=== PATIENT | female | born 1950 | race Caucasian/White ===

== ENCOUNTER 2019-11-10 11:05 | Outpatient (CLI) | payer MEDICARE, SELFPAY ==
--- NOTE | 2019-11-10 11:10 | MM_ITS ---
WS: [id number] SCREENING DIGITAL MAMMOGRAM WITH CAD HISTORY: SCREENING COMPARISON: 08/22/2018 and 08/16/2017 Bilateral CC and MLO views submitted. Computer aided detection analyzed. Breast composition: There are scattered areas of fibroglandular density. No suspicious mass or calcif ications. MM/[id number] IMPRESSION: BI-RADS: 1-Negative FOLLOW UP: 1 Year Follow-up
== END 2019-11-10 11:06 | disposition home or self-care (01) ==
LOC: RADSHAW 11:08
PROVIDERS: Family Provider Registered Nurse; PCP Registered Nurse; Visit Provider Registered Nurse
DX: Z12.31 Encounter for screening mammogram for malignant neoplasm of breast (principal)
CPT/HCPCS: 77067

== ENCOUNTER 2020-03-01 05:51 | Day surgery (SDC) | payer MEDICARE, SELFPAY ==
[2020-02-29 15:10] VITALS: BMI 27.2
[2020-03-01 06:01] VITALS: BP 145/74; PULSE 73; RESP 18; TEMP 36.6; O2SAT 97
[2020-03-01] MEDS: CELEcoxib 200 mg Capsule 400 MG PO (06:22)
[2020-03-01] MEDS: sodium chloride 0.9% 1,000 ML 30 ML IV (06:22)
[2020-03-01 06:31] LABS: Basophils # 0.1 10^3/uL (0.0-0.1); Basophils % 0.8 %; Eosinophils # 0.3 10^3/uL (0.0-0.8); Eosinophils % 4.7 %; Hematocrit 37.5 % (37.0-47.0); Hemoglobin 11.9 g/dL (11.5-15.3); Lymphocytes # 1.7 10^3/uL (0.8-4.8); Lymphocytes % 26.1 %; Mean Corpuscular HGB Conc 31.7 g/dL (30.0-36.0); Mean Corpuscular Hemoglobin 29.7 pg (28.0-34.0); Mean Corpuscular Volume 93.5 fL (81-99); Mean Platelet Volume 9.9 fL (7.4-10.4); Monocytes # 0.6 10^3/uL (0.2-0.9); Monocytes % 9.5 %; Neutrophils # 3.8 10^3/uL (1.8-7.7); Neutrophils % 58.7 %; Nucleated Red Blood Cells % 0 %; Platelet Count 256 10^3/cmm (130-400); Red Blood Count 4.01 10^6/uL (4.1-5.3); Red Cell Distribution Width 12.2 % (12.1-15.1); White Blood Count 6.4 10^3/uL (4.0-10.0)
--- NOTE | 2020-03-01 06:33 | P.ANESASSM_ITS ---
Pre-Anesthetic Assessment Pre-Anesthetic Assessment: Height/Weight: Height 1.7 m Weight 78.925 kg Temp Pulse Resp BP Pulse Ox 97.9 F 73 18 145/74 97 03/01/20 06:01 03/01/20 06:01 03/01/20 06:01 03/01/20 06:01 03/01/20 06:01 Preop Diagnosis: Right long finger triggering Proposed Procedure: Operation Date: 03/01/20 07:10 Proposed Procedures p Trigger Finger Release/Right Middle Finger 31924 M65.30(Right) - Bessie Hurtado MD Familial anesthetic complications: None Was Beta Linh taken within 24 hours: N/A Last intake: Intake Last Liquid Date 02/29/20 Last Liquid Time 21:00 Last Solid Date 02/29/20 Last Solid Time 19:00 Social: Social History: No alcohol and No tobacco Exam: Pre-Anes Outpt Exam: alert, oriented x 3, clear to auscultation bilaterally and regular rate & rhythm Airway: Cervical ROM: WNL MP: 2 Dentition: Full Pulmonary: Pulmonary: None reported CV/HEM: CV/HEM: HTN : : None reported Hepatic: Hepatic: None reported GI: GI: None reported Metabolic: Metabolic: Hyperlipidemia and Thyroid Musc/skel: Musc/skel: OA/DJD Neuropsych: Neuropsych: None reported Anesthetic Plan: ASA status: 2 Anesthesia: MAC and Regional (specify below) (selma block) Risk of > 500 ml blood loss (7ml/kg in children): No Meds/Allergies Current Medications: Current Medications Generic Name Dose Route Start Last Admin Trade Name Freq PRN Reason Stop Dose Admin Sodium Chloride 1,000 mls @ 30 ml s/hr 03/01/20 06:00 03/01/20 06:22 Sodium Chloride 0.9% IV 03/02/20 05:59 30 mls/hr .Q24H MAXIMINO Administration PFSH Anesthesia PFSH: Medical History (Updated 02/25/20 @ 15:38 by Bessie Hurtado MD) Accelerated essential hypertension Hypercholesteremia Hypothyroidism Trigger finger of right hand Surgical History (Updated 02/25/20 @ 15:37 by Bessie Hurtado MD) H/O thyroidectomy Hx of hysterectomy Hx of tubal ligation Family History Father Hypertension Hypercholesterolemia Mother Heart disease Hypercholesterolemia Social History Smoking and tobacco status: never smoked Alcohol intake: current Alcohol intake frequency: holidays/special occasions only Data Anesthesia CBC & Chem 7: 03/01/20 06:17 Other Labs: Laboratory Results - last 48 hr 03/01/20 06:17 WBC 6.4 RBC 4.01 L Hgb 11.9 Hct 37.5 MCV 93.5 MCH 29.7 MCHC 31.7 RDW 12.2 Plt Count 256 MPV 9.9 Neut % (Auto) 58.7 Lymph % (Auto) 26.1 [place] % (Auto) 9.5 Eos % (Auto) 4.7 Baso % (Auto) 0.8 Neut # (Auto) 3.8 Lymph # (Auto) 1.7 [place] # (Auto) 0.6 Eos # (Auto) 0.3 Baso # (Auto) 0.1 Nucleated RBC % (auto) 0 Nucleated RBCs # 0.0 Cardiac Studies: No Data to Display
[2020-03-01 06:40] LABS: Alanine Aminotransferase 11 U/L (0-33); Albumin Level 4.4 g/dL (3.5-5.2); Alkaline Phosphatase 76 IU/L (35-105); Anion Gap 16.2 (5-19); Aspartate Amino Transferase 19 U/L (0-32); Blood Urea Nitrogen 8 mg/dL (8-23); Calcium 9.7 mg/dL (8.5-10.5); Carbon Dioxide 28 mmol/L (22-29); Chloride 100 mmol/L (98-107); Globulin 3.5 g/dL (1.3-4.6); Glomerular Filtration Rate 54.8 mL/min (90-130); Glucose 92 mg/dL (65-115); Osmolality Calculated 286 mOsm/kg (285-295); Potassium 4.2 mmol/L (3.5-5.1); Sodium 140 mmol/L (136-145); Total Bilirubin 0.3 mg/dL (0.15-1.2); Total Protein 7.9 g/dL (6.6-8.7)
--- NOTE | 2020-03-01 06:50 | W.PM.OPSUD ---
Surgery/Procedure H&P Update DATE OF PROCEDURE: March 01, 2020 DATE H&P PERFORMED: 02/25/20 H&P UPDATE INFORMATION: I have reviewed H&P completed within last 30 days, I have examined patient prior to procedure and No changes to prior documentation PREOP DIAGNOSIS: Right long finger triggering PLANNED PROCEDURE: Operation Date: 03/01/20 07:10 Proposed Procedures p Trigger Finger Release/Right Middle Finger 52844 M65.30(Right) - Bessie Hurtado MD
[2020-03-01 07:43] VITALS: BP 180/93; PULSE 78; RESP 18; TEMP 36.2; O2SAT 100
--- NOTE | 2020-03-01 07:47 | PM.OP ---
Operative Report Date of procedure: March 01, 2020 Pre-op Diagnosis: Right long finger triggering Post-op diagnosis: same Post-op Findings: Relief of triggering, but maintained flexion contracture at PIP joint Procedure Done: Right long finger trigger release Specimens removed/disposition: None Pathology: none sent Surgeon: Bessie Hurtado Nurse Staff Community Health: None Anesthesia: MAC (With James block) Estimated blood loss (mL): 1 Tourniquet time (min): 28 IV fluids (mL): 400 Urine output (mL): 0 Complications: None Condition: stable Disposition: same day Brief History: This 69-year-old woman presented with complaints of triggering of the right long finger. She also had flexion particularly at the PIP joint on that finger. She was advised preoperatively that this was likely secondary to arthritis and would not improve with a trigger finger release. The patient understood and wished to proceed with release of her trigger finger. Procedure: Patient was brought to the operating theater. She was placed on the operating room table. A James block was administered without difficulty. Patient tolerated it well. A tourniquet was placed high on the arm and was elevated for the [place] block. Tourniquet time was 28 minutes. Surgical pause was performed prior to commencement of the surgical procedure. At the time of the surgical pause we identified the site and side of surgery. We also identified the patient's identity and appropriate administration of IV antibiotics. Following the surgical pause, an incision was made along the distal palmar crease beneath the long finger. Dissection continued through the skin to the subcutaneous tissues using a scalpel. Blunt dissection was then utilized to spread soft tissues and allow access to the A1 william. The A1 william was identified. It was then incised longitudinally and sharply using a knife. This was accomplished without difficulty and atraumatically. Once the A1 william was released, tendons were brought up out of the wound and evaluated. There were no gross masses on the tendons. Tendons were returned to normal position. We then irrigated the wound and subsequently closed it with 3-0 nylon with an interrupted mattress type suture. Following closure of the wound, the wound was injected with 6 mL of bupivacaine into the subcutaneous tissues as a local anesthetic. Sterile dressing was then placed consisting of Telfa, Tegaderm, fluffed fluffs, sterile soft roll, and an Renato wrap. The patient was returned to recovery in satisfactory condition. She will be discharged home to follow-up with me in the office. There were no complications and no specimens. Associated Problem List Diagnoses (1) Trigger finger of right hand: Qualifiers: Trigger finger location: middle finger Qualified Code(s): M65.331 - Trigger finger, right middle finger
[2020-03-01 08:12] VITALS: BP 177/85; PULSE 72; RESP 18; O2SAT 100
== END 2020-03-01 08:20 | disposition home or self-care (01) ==
PROVIDERS: PCP Registered Nurse; Visit Provider Specialist
PROC: (CPT 26055; principal; 2020-03-01 07:00)
DX: M65.331 Trigger finger, right middle finger (principal); E03.9 Hypothyroidism, unspecified; I10 Essential (primary) hypertension; E78.5 Hyperlipidemia, unspecified
CPT/HCPCS: 26055; 12345; 36415; 80053; 85025; J2001; J2250; J2704; J3490; J7030

== ENCOUNTER 2020-11-17 07:56 | Outpatient (CLI) | payer MEDICARE, SELFPAY ==
--- NOTE | 2020-11-17 07:59 | MM_ITS ---
WS: [id number] Bilateral screening digital mammogram, 11/17/2020 Clinical Data: SCREENING Comparison: 11/10/2019, 08/22/2018, 08/16/2017, 08/01/2016, 06/27/2015, 06/23/2014, 04/28/2013, 04/25/20, 03/01/2011, 08/17/2009, 03/25/2008, 12/25/2006. Findings: The breast parenchymal pattern shows fat replacement. No spiculated masses or clustered calcification s are seen. There are no secondary signs of carcinoma. There are lymph nodes in both axilla. MM/[place] [id number] Impression: 1. Negative bilateral mammogram unchanged. 2. Recommend annual screening mammograms. BIRADS: 1-Negative FOLLOW UP: 1 Year Follow-up The CAD cylinder checker was used.
== END 2020-11-17 07:57 | disposition home or self-care (01) ==
LOC: RADSHAW 07:58
PROVIDERS: PCP Registered Nurse; Visit Provider Registered Nurse
DX: Z12.31 Encounter for screening mammogram for malignant neoplasm of breast (principal)
CPT/HCPCS: 77067

== ENCOUNTER 2022-01-16 08:24 | Outpatient (CLI) | payer MEDICARE, SELFPAY ==
--- NOTE | 2022-01-16 08:31 | MM_ITS ---
WS: [id number] BILATERAL SCREENING DIGITAL BREAST TOMOSYNTHESIS MAMMOGRAM WITH CAD HISTORY: SCREENING COMPARISON: 11/17/2020 and 11/10/2019 Bilateral CC and MLO views with tomosynthesis and synthetic mammography submitted. Computer aided det ection analyzed. Breast composition: There are scattered areas of fibroglandular density. No suspicious masses, microc alcifications or architectural distortion. MM/[place] [id number] IMPRESSION: BI-RADS: 1-Negative FOLLOW UP: 1 Year Follow-up
== END 2022-01-16 08:25 | disposition home or self-care (01) ==
LOC: RAD 08:28
PROVIDERS: PCP Registered Nurse; Visit Provider Family Medicine
DX: Z12.31 Encounter for screening mammogram for malignant neoplasm of breast (principal)
CPT/HCPCS: 77063; 77067

== ENCOUNTER 2022-09-07 08:21 | Emergency (ER) | payer MEDICARE, SELFPAY ==
[2022-09-07] VITALS (7 sets, daily range): BP systolic 144–187; BP diastolic 78–87; PULSE 92–107; RESP 18–22; TEMP 36.8; O2SAT 91–96; BMI 29.0
--- NOTE | 2022-09-07 08:31 | XRR_ITS ---
PROCEDURE INFORMATION: Exam: XR Chest Exam date and time: 09/07/2022 9:00 AM Age: 71 years old Clinical indication: Shortness of breath; Additional info: SOB TECHNIQUE: Imaging protocol: Radiologic exam of the chest. Views: 2 views. COMPARISON: No relevant prior studies available. FINDINGS: Lungs: There is streaky airspace opacity in the retrocardiac region, projecting over the spine on the lateral view, concerning for pneumonia. Bibasilar atelectasis noted. Pleural spaces: Unremarkable. No pleural effusion. No pneumothorax. Heart/Mediastinum: Unremarkable. No cardiomegaly. Bones/joints: Unremarkable. XR/XR chest 2V* [id number] IMPRESSION: Left lower lobe pneumonia versus atelectasis. Clinical correlation is recommended.
[2022-09-07] MEDS: sodium chloride 0.9% 1,000 ML 999 ML IV (08:45)
[2022-09-07 08:46] LABS: Basophils % 0.3 %; Eosinophils # 0.1 10^3/uL (0.0-0.8); Eosinophils % 0.9 %; Hematocrit 39.7 % (37.0-47.0); Hemoglobin 13.1 g/dL (11.5-15.3); Lymphocytes # 1.5 10^3/uL (0.8-4.8); Lymphocytes % 12.1 %; Mean Corpuscular Hemoglobin 30.8 pg (28.0-34.0); Mean Corpuscular Volume 93.2 fl (81-99); Mean Platelet Volume 9.8 fL (7.4-10.4); Monocytes # 0.9 10^3/uL (0.2-0.9); Monocytes % 7.5 %; Neutrophils # 9.82 10^3/uL (1.8-7.7); Neutrophils % 78.9 %; Nucleated Red Blood Cells % 0 %; Platelet Count 268 10^3/cmm (130-400); Red Blood Count 4.26 10^6/uL (4.1-5.3); Red Cell Distribution Width 12.9 % (12.1-15.1); White Blood Count 12.5 10^3/uL (4.0-10.0)
[2022-09-07] MEDS: albuterol 2.5 mg/3 mL Neb INHALATION (09:09)
[2022-09-07 09:11] LABS: Alanine Aminotransferase 16 U/L (0-33); Albumin Level 4.5 g/dL (3.5-5.2); Alkaline Phosphatase 136 U/L (35-105); Anion Gap 16.1 (5-19); Aspartate Amino Transferase 22 U/L (0-32); Blood Urea Nitrogen 10 mg/dL (8-23); Calcium 9.6 mg/dL (8.5-10.5); Carbon Dioxide 28 mmol/L (22-29); Chloride 92 mmol/L (98-107); Globulin 4.2 g/dL (1.3-4.6); Glucose 105 mg/dL (65-115); Osmolality Calculated 273 mOsm/kg (285-295); Potassium 4.1 mmol/L (3.5-5.1); Sodium 132 mmol/L (136-145); Total Bilirubin 0.5 mg/dL (0.15-1.2); Total Protein 8.7 g/dL (6.6-8.7)
[2022-09-07 09:15] LABS: SARS Covid-2 Antigen negative (Negative)
[2022-09-07 09:16] LABS: Influenza A by IFA negative (Negative); Influenza B by IFA negative (Negative)
--- NOTE | 2022-09-07 09:37 | ECG_ITS ---
[facility] Test Date: 2022-09-07 Pat Name: Sofia Cruz Department: Room: Gender: Female [employer]: : 1950 Requested By: Mary Ann Marshall Order Number: [id number] Murguia MD: Tabitha Tubbs M.D. Measurements Intervals [place] Rate: 97 P: 56 MO: 182 QRS: 40 QRSD: 83 T: 41 QT: 362 QTc: 461 Interpretive Statements SINUS RHYTHM POSSIBLE LEFT ATRIAL ENLARGEMENT [-0.1mV P-WAVE IN V1/V2] No previous ECG available for comparison Electronically Signed On 09-07-2022 16:54:15 INVESTIGATIVE ASSISTANT by Tabitha Tubbs M.D. [id number]
--- NOTE | 2022-09-07 09:47 | W.ED.SOB ---
Documented by User: APOLINAR Almonte 09/07/22 13:27 HPI - SOB/Dyspnea General: Chief Complaint: Shortness of Breath/Dyspnea Stated Complaint: SOB Time Seen by Provider: 09/07/22 08:28 History of Present Illness: HPI Narrative: Patient is in today for shortness of breath. She reports that for a few days she has had some nasal congestion and drainage with a little bit of irritated throat. She reports that she woke up this morning and felt like her throat was very painful and she felt short of breath. She denies any fever or chills. She denies any chest pain Associated symptoms: Deny abdominal pain, chest pain, fever(s), nausea, palpitations or vomiting Review of Systems Const: Denies: fever(s), chills or body aches Eyes: Reports: eye discharge (Left eye crusting) ENMT: Reports: throat pain, nasal discharge and nasal congestion Card: Denies: chest pain, palpitations or irregular heart rhythm Resp: Reports: dyspnea and non-productive cough; Denies: productive cough or wheezing GI: Denies: abdominal pain, nausea or vomiting : Denies: flank pain, difficulty voiding or dysuria Neuro: Denies: headache(s) PFSH ED PFSH: Medical History (Updated 09/07/22 @ 10:15 by APOLINAR Almonte) Accelerated essential hypertension Hypercholesteremia Hypothyroidism Trigger finger of right hand Surgical History H/O thyroidectomy Hx of hysterectomy Hx of tubal ligation Family History Father Hypertension Hypercholesterolemia Mother Heart disease Hypercholesterolemia Social History Smoking and tobacco status: never smoked Alcohol intake: current Alcohol intake frequency: holidays/special occasions only Physical Exam Const: COMMON NORMALS: patient oriented x3 and alert OTHER: Patient is slightly tachypneic but not using accessory muscles to breathe. She is calm and resting HENMT: TYMPANIC MEMBRANE: TM normal on the right and TM abnormal TM laterality: left Details: fluid behind TM MOUTH: moist mucous membranes abnormal Details: parched THROAT: uvula midline and postnasal drainage Neck/C-Spine: COMMON NORMALS: no JVD Resp: EFFORT & INSPECTION: Yes able to speak in complete sentences, Yes symmetric chest movement, Yes tachypneic and No respiratory distress AUSCULTATION: wheezes scattered wheezes and throughout Cardio: COMMON NORMALS: no JVD, regular rhythm, S1 normal heart sound present and S2 normal heart sound present RATE: tachycardic RHYTHM: regular rhythm HEART SOUNDS: S1 normal heart sound present and S2 normal heart sound present Neuro: COMMON NORMALS: patient oriented x3, moves all extremities and no focal motor deficits SENSORIUM/ORIENTATION: Yes alert Course Vital Signs: Vital signs: Vital Signs Temperature 98.3 F 09/07/22 08:25 Pulse Rate 99 09/07/22 10:00 Respiratory Rate 21 H 09/07/22 10:00 Blood Pressure 187/87 09/07/22 10:00 Pulse Oximetry 93 09/07/22 10:00 Oxygen Delivery Me thod 09/07/22 10:00 MDM - SOB/Dyspnea Medical Decision Making Differentials include upper respiratory infection, influenza, COVID-19, pulmonary embolism, pneumonia, strep pharyngitis Influenza and COVID-19 testing negative White blood cell count elevated to 12.5 IV fluids initiated strep pharyngitis done. EKG ordered does not show any acute ST changes. Sinus rhythm with a rate of 97. Patient reports feeling somewhat improved with administration of IV fluids and albuterol nebulized treatment. X-ray chest shows left lower lobe pneumonia versus atelectasis. Treat patient for left lower lobe pneumonia with doxycycline that she is allergic to penicillin. First dose doxycycline given now. Amlodipine 2.5 mg given now as patient's blood pressures running slightly higher patient reports not having taken her morning amlodipine medication. Send patient home with doxycycline antibiotic, prednisone burst and albuterol inhaler. Encourage patient to maintain adequate hydration, cough and deep breathe, rest. Follow-up with primary care provider next week for reevaluation. Return to the ER for any new or worsening symptoms. Lab Data 09/07/22 08:40 09/07/22 08:40 Labs/Radiology: Radiology Impressions Chest X-Ray 09/07/22 08:31 IMPRESSION: Left lower lobe pneumonia versus atelectasis. Clinical correlation is recommended. Laboratory Results WBC 12.5 10^3/uL (4.0-10.0) H 09/07/22 08:40 RBC 4.26 10^6/uL (4.1-5.3) 09/07/22 08:40 Hgb 13.1 g/dL (11.5-15.3) 09/07/22 08:40 Hct 39.7 % (37.0-47.0) 09/07/22 08:40 MCV 93.2 fl (81-99) 09/07/22 08:40 MCH 30.8 pg (28.0-34.0) 09/07/22 08:40 MCHC 33.0 g/dL (30.0-36.0) 09/07/22 08:40 RDW 12.9 % (12.1-15.1) 09/07/22 08:40 Plt Count 268 10^3/cmm (130-400) 09/07/22 08:40 MPV 9.8 fL (7.4-10.4) 09/07/22 08:40 Neut % (Auto) 78.9 % 09/07/22 08:40 Lymph % (Auto) 12.1 % 09/07/22 08:40 [place] % (Auto) 7.5 % 09/07/22 08:40 Eos % (Auto) 0.9 % 09/07/22 08:40 Baso % (Auto) 0.3 % 09/07/22 08:40 Neut # (Auto) 9.82 10^3/uL (1.8-7.7) H 09/07/22 08:40 Lymph # (Auto) 1.5 10^3/uL (0.8-4.8) 09/07/22 08:40 [place] # (Auto) 0.9 10^3/uL (0.2-0.9) 09/07/22 08:40 Eos # (Auto) 0.1 10^3/uL (0.0-0.8) 09/07/22 08:40 Baso # (Auto) 0.0 10^3/uL (0.0-0.1) 09/07/22 08:40 Nucleated RBC % (auto) 0 % 09/07/22 08:40 Nucleated RBCs # 0.0 /100WBC 09/07/22 08:40 Sodium 132 mmol/L (136-145) L 09/07/22 08:40 Potassium 4.1 mmol/L (3.5-5.1) 09/07/22 08:40 Chloride 92 mmol/L (98-107) L 09/07/22 08:40 Carbon Dioxide 28 mmol/L (22-29) 09/07/22 08:40 Anion Gap 16.1 (5-19) 09/07/22 08:40 BUN 10 mg/dL (8-23) 09/07/22 08:40 Creatinine 0.9 mg/dL (0.5-0.9) 09/07/22 08:40 GFR Calculation Not Reportable 09/07/22 08:40 Glucose 105 mg/dL (65-115) 09/07/22 08:40 Calculated Osmolality 273 mOsm/kg (285-295) L 09/07/22 08:40 Calcium 9.6 mg/dL (8.5-10.5) 09/07/22 08:40 Total Bilirubin 0.5 mg/dL (0.15-1.2) 09/07/22 08:40 AST 22 U/L (0-32) 09/07/22 08:40 ALT 16 U/L (0-33) 09/07/22 08:40 Alkaline Phosphatase 136 U/L (35-105) H 09/07/22 08:40 Total Protein 8.7 g/dL (6.6-8.7) 09/07/22 08:40 Albumin 4.5 g/dL (3.5-5.2) 09/07/22 08:40 Globulin 4.2 g/dL (1.3-4.6) 09/07/22 08:40 Influenza Type A Ag negative (Negative) 09/07/22 08:48 Influenza Type B Ag negative (Negative) 09/07/22 08:48 SARS-CoV-2 Ag (Rapid) negative (Negative) 09/07/22 08:48 Group A Strep Rapid Negative (Negative) 09/07/22 10:00 Discharge Plan Discharge Patient Disposition: Home Clinical Impression: Left lower lobe pneumonia Condition: Stable Prescriptions: New doxycycline hyclate 100 mg capsule 100 mg PO BID 7 Days Qty: 14 0RF prednisone 20 mg tablet 40 mg PO DAILY 5 Days Qty: 10 0RF albuterol sulfate 90 mcg/actuation HFA aerosol inhaler 2 inh inhalation Q6H PRN (Reason: shortness of breath or wheezing) Qty: 6.7 0RF No Action bupropion HCl 150 mg Tablet Sustained-Release 12 Hr 150 mg PO BID trazodone 50 mg tablet 50 mg PO BEDTIME celecoxib 200 mg capsule 200 mg PO DAILY Qty: 30 0RF levothyroxine 137 mcg tablet 137 mcg PO QAM amlodipine-atorvastatin 2.5-10 mg tablet 1 tab PO DAILY Cymbalta 60 mg Capsule,Delayed Release(Dr/Ec) 60 mg PO DAILY Women's 50 Plus Multivitamin 400 mcg-500 mg calcium-20 mcg Tablet 1 tab PO DAILY Discharge Orders: Discharge ED (Routine); Ordered 09/07/22 Ordered By: Mary Ann Marshall Referrals: Liliana Cordero FNP [Primary Care Provider] - Discharge Diet: Usual diet Discharge Activity: Increase activity as tolerated Patient Instructions: Pneumonia (ED) Activity Restrictions/Additional Instructions: Take antibiotics as directed. Start your home antibiotic tonight as you have already had the morning dose. Start the prednisone tomorrow on 09/08/2022. Make sure that you are staying well-hydrated. Make sure that you are coughing and deep breathing. Follow-up with your primary care provider next week. Return to the ER as needed for any new or worsening symptoms. Coding Level of Care Code ED Assembler Installer General for Chg Fwd Exam Detailed Documented by User: David Gil DO 09/07/22 16:47 HPI - SOB/Dyspnea General: Chief Complaint: Shortness of Breath/Dyspnea Stated Complaint: SOB Time Seen by Provider: 09/07/22 08:28 PFS ED PFSH: Medical History (Updated 09/07/22 @ 10:15 by APOLINAR Almonte) Accelerated essential hypertension Hypercholesteremia Hypothyroidism Trigger finger of right hand Surgical History H/O thyroidectomy Hx of hysterectomy Hx of tubal ligation Family History Father Hypertension Hypercholesterolemia Mother Heart disease Hypercholesterolemia Social History Smoking and tobacco status: never smoked Alcohol intake: current Alcohol intake frequency: holidays/special occasions only Course Vital Signs: Vital signs: Vital Signs Temperature 98.3 F 09/07/22 08:25 Pulse Rate 99 09/07/22 10:00 Respiratory Rate 21 H 09/07/22 10:00 Blood Pressure 187/87 09/07/22 10:00 Pulse Oximetry 93 09/07/22 10:00 Oxygen Delivery Me thod 09/07/22 10:00 MDM - SOB/Dyspnea Medical Decision Making Differentials include upper respiratory infection, influenza, COVID-19, pulmonary embolism, pneumonia, strep pharyngitis Influenza and COVID-19 testing negative White blood cell count elevated to 12.5 IV fluids initiated strep pharyngitis done. EKG ordered does not show any acute ST changes. Sinus rhythm with a rate of 97. Patient reports feeling somewhat improved with administration of IV fluids and albuterol nebulized treatment. X-ray chest shows left lower lobe pneumonia versus atelectasis. Treat patient for left lower lobe pneumonia with doxycycline that she is allergic to penicillin. First dose doxycycline given now. Amlodipine 2.5 mg given now as patient's blood pressures running slightly higher patient reports not having taken her morning amlodipine medication. Send patient home with doxycycline antibiotic, prednisone burst and albuterol inhaler. Encourage patient to maintain adequate hydration, cough and deep breathe, rest. Follow-up with primary care provider next week for reevaluation. Return to the ER for any new or worsening symptoms. Chart reviewed and patient discussed with midlevel. Agree with assessment and plan. Lab Data 09/07/22 08:40 09/07/22 08:40 Labs/Radiology: Radiology Impressions Chest X-Ray 09/07/22 08:31 IMPRESSION: Left lower lobe pneumonia versus atelectasis. Clinical correlation is recommended. Laboratory Results WBC 12.5 10^3/uL (4.0-10.0) H 09/07/22 08:40 RBC 4.26 10^6/uL (4.1-5.3) 09/07/22 08:40 Hgb 13.1 g/dL (11.5-15.3) 09/07/22 08:40 Hct 39.7 % (37.0-47.0) 09/07/22 08:40 MCV 93.2 fl (81-99) 09/07/22 08:40 MCH 30.8 pg (28.0-34.0) 09/07/22 08:40 MCHC 33.0 g/dL (30.0-36.0) 09/07/22 08:40 RDW 12.9 % (12.1-15.1) 09/07/22 08:40 Plt Count 268 10^3/cmm (130-400) 09/07/22 08:40 MPV 9.8 fL (7.4-10.4) 09/07/22 08:40 Neut % (Auto) 78.9 % 09/07/22 08:40 Lymph % (Auto) 12.1 % 09/07/22 08:40 [place] % (Auto) 7.5 % 09/07/22 08:40 Eos % (Auto) 0.9 % 09/07/22 08:40 Baso % (Auto) 0.3 % 09/07/22 08:40 Neut # (Auto) 9.82 10^3/uL (1.8-7.7) H 09/07/22 08:40 Lymph # (Auto) 1.5 10^3/uL (0.8-4.8) 09/07/22 08:40 [place] # (Auto) 0.9 10^3/uL (0.2-0.9) 09/07/22 08:40 Eos # (Auto) 0.1 10^3/uL (0.0-0.8) 09/07/22 08:40 Baso # (Auto) 0.0 10^3/uL (0.0-0.1) 09/07/22 08:40 Nucleated RBC % (auto) 0 % 09/07/22 08:40 Nucleated RBCs # 0.0 /100WBC 09/07/22 08:40 Sodium 132 mmol/L (136-145) L 09/07/22 08:40 Potassium 4.1 mmol/L (3.5-5.1) 09/07/22 08:40 Chloride 92 mmol/L (98-107) L 09/07/22 08:40 Carbon Dioxide 28 mmol/L (22-29) 09/07/22 08:40 Anion Gap 16.1 (5-19) 09/07/22 08:40 BUN 10 mg/dL (8-23) 09/07/22 08:40 Creatinine 0.9 mg/dL (0.5-0.9) 09/07/22 08:40 GFR Calculation Not Reportable 09/07/22 08:40 Glucose 105 mg/dL (65-115) 09/07/22 08:40 Calculated Osmolality 273 mOsm/kg (285-295) L 09/07/22 08:40 Calcium 9.6 mg/dL (8.5-10.5) 09/07/22 08:40 Total Bilirubin 0.5 mg/dL (0.15-1.2) 09/07/22 08:40 AST 22 U/L (0-32) 09/07/22 08:40 ALT 16 U/L (0-33) 09/07/22 08:40 Alkaline Phosphatase 136 U/L (35-105) H 09/07/22 08:40 Total Protein 8.7 g/dL (6.6-8.7) 09/07/22 08:40 Albumin 4.5 g/dL (3.5-5.2) 09/07/22 08:40 Globulin 4.2 g/dL (1.3-4.6) 09/07/22 08:40 Influenza Type A Ag negative (Negative) 09/07/22 08:48 Influenza Type B Ag negative (Negative) 09/07/22 08:48 SARS-CoV-2 Ag (Rapid) negative (Negative) 09/07/22 08:48 Group A Strep Rapid Negative (Negative) 09/07/22 10:00 Discharge Plan Discharge Patient Disposition: Home Clinical Impression: Left lower lobe pneumonia Condition: Stable Prescriptions: New doxycycline hyclate 100 mg capsule 100 mg PO BID 7 Days Qty: 14 0RF prednisone 20 mg tablet 40 mg PO DAILY 5 Days Qty: 10 0RF albuterol sulfate 90 mcg/actuation HFA aerosol inhaler 2 inh inhalation Q6H PRN (Reason: shortness of breath or wheezing) Qty: 6.7 0RF No Action bupropion HCl 150 mg Tablet Sustained-Release 12 Hr 150 mg PO BID trazodone 50 mg tablet 50 mg PO BEDTIME celecoxib 200 mg capsule 200 mg PO DAILY Qty: 30 0RF levothyroxine 137 mcg tablet 137 mcg PO QAM amlodipine-atorvastatin 2.5-10 mg tablet 1 tab PO DAILY Cymbalta 60 mg Capsule,Delayed Release(Dr/Ec) 60 mg PO DAILY Women's 50 Plus Multivitamin 400 mcg-500 mg calcium-20 mcg Tablet 1 tab PO DAILY Discharge Orders: Discharge ED (Routine); Ordered 09/07/22 Ordered By: Mary Ann Marshall Referrals: Liliana Cordero FNP [Primary Care Provider] - Discharge Diet: Usual diet Discharge Activity: Increase activity as tolerated Patient Instructions: Pneumonia (ED) Activity Restrictions/Additional Instructions: Take antibiotics as directed. Start your home antibiotic tonight as you have already had the morning dose. Start the prednisone tomorrow on 09/08/2022. Make sure that you are staying well-hydrated. Make sure that you are coughing and deep breathing. Follow-up with your primary care provider next week. Return to the ER as needed for any new or worsening symptoms. Coding Level of Care Code ED Assembler Installer General for Sathish Fwd Exam Detailed
[2022-09-07] MEDS: amlodipine 5 mg Tablet 2.5 MG PO (09:56)
[2022-09-07] MEDS: doxycycline 100 mg Tablet PO (10:07)
[2022-09-07] MEDS: dexamethasone 4 mg/mL INJ IVP (10:08)
[2022-09-07 10:16] LABS: Rapid Strep A Test Negative (Negative)
== END 2022-09-07 10:30 | disposition home or self-care (01) ==
PROVIDERS: Emergency Provider Nurse Practitioner Family; PCP Registered Nurse
DX: J18.8 Other pneumonia, unspecified organism (principal); Z20.822 Contact with and (suspected) exposure to COVID-19; I10 Essential (primary) hypertension
CPT/HCPCS: 71046; 80053; 85025; 87081; 87426; 87804; 87880; 93005; 94640; 96361; 96374; 99285; J1100; J7030; J7613

== ENCOUNTER 2023-01-23 08:06 | Outpatient (CLI) | payer MEDICARE, SELFPAY ==
--- NOTE | 2023-01-23 08:21 | MM_ITS ---
WS: [id number] BILATERAL SCREENING DIGITAL TOMOSYNTHESIS MAMMOGRAM WITH CAD HISTORY: SCREENING COMPARISON: 01/16/2022, 11/17/2020 Bilateral CC and MLO views with tomosynthesis and synthetic mammography submitted. Computer aided det ection analyzed. Breast composition: There are scattered areas of fibroglandular density. No suspicious masses, microc alcifications or architectural distortion. MM/[place] [id number] IMPRESSION: BI-RADS: 1-Negative FOLLOW UP: 1 Year Follow-up
== END 2023-01-23 08:07 | disposition home or self-care (01) ==
LOC: RAD 08:11
PROVIDERS: PCP Registered Nurse; Visit Provider Registered Nurse
DX: Z12.31 Encounter for screening mammogram for malignant neoplasm of breast (principal)
CPT/HCPCS: 77063; 77067

== ENCOUNTER 2024-01-31 08:04 | Outpatient (CLI) | payer MEDICARE, SELFPAY ==
--- NOTE | 2024-01-31 08:09 | MM_ITS ---
WS: [id number] BILATERAL SCREENING DIGITAL TOMOSYNTHESIS MAMMOGRAM WITH CAD HISTORY: SCREENING COMPARISON: 01/23/2023, 01/16/2022 Bilateral CC and MLO views with tomosynthesis and synthetic mammography submitted. Computer aided det ection analyzed. Breast composition: There are scattered areas of fibroglandular density. No suspicious masses, microc alcifications or architectural distortion. MM/[id number] IMPRESSION: BI-RADS: 1-Negative FOLLOW UP: 1 Year Follow-up
--- NOTE | 2024-01-31 08:27 | XR_ITS ---
WS: [id number] SCREENING DEXA SCAN [facility] CLINICAL INFORMATION: POST MENOPAUSAL COMPARISON: None. FINDINGS: The L1-L4 bone mineral density measures 1.088 g/cm2. This corresponds to a T score score of -0.8 and Z score of 0.2. Left femoral neck bone mineral density measures 0.930 g/cm2. This corresponds to a T score of -0.6 an d Z score of 0.5. Right femoral neck bone mineral density measures 0.926 g/cm2. This corresponds to a T score -0.7of an d Z score of 0.5. Mean femoral neck bone mineral density measures 0.928 g/cm2. This corresponds to a T score of -0.6 an d Z score of 0.5. XR/XR DEXA axial skeleton* [id number] IMPRESSION: Normal bone mineralization. Patient's FRAX calculated 10 year probability for major osteoporotic fracture i s 11.2% and osteoporotic hip fracture is 2.3%.
== END 2024-01-31 08:05 | disposition home or self-care (01) ==
LOC: RAD 08:04
PROVIDERS: PCP Registered Nurse; Visit Provider Registered Nurse
DX: Z78.0 Asymptomatic menopausal state (principal); R92.323 Mammographic fibroglandular density, bilateral breasts; R92.8 Other abnormal and inconclusive findings on diagnostic imaging of breast
CPT/HCPCS: 77063; 77067; 77080

== ENCOUNTER 2025-02-03 08:53 | Outpatient (CLI) | payer MEDICARE, SELFPAY ==
--- NOTE | 2025-02-03 08:55 | MM_ITS ---
WS: [id number] BILATERAL SCREENING DIGITAL TOMOSYNTHESIS MAMMOGRAM WITH CAD HISTORY: SCREENING COMPARISON: 01/31/2024, 01/23/2023 Bilateral CC and MLO views with tomosynthesis and synthetic mammography submitted. Computer aided detection analyzed. Breast composition: There are scattered areas of fibroglandular density. No suspicious masses, microcalcifications or architectural distortion. MM/MM scr BI tomosynthesis [id number] IMPRESSION: BI-RADS: 1 - Negative. FOLLOW UP: 1 Year Follow-up
== END 2025-02-03 08:54 | disposition home or self-care (01) ==
PROVIDERS: PCP Registered Nurse; Visit Provider Registered Nurse
DX: Z12.31 Encounter for screening mammogram for malignant neoplasm of breast (principal); R92.323 Mammographic fibroglandular density, bilateral breasts
CPT/HCPCS: 77063; 77067

== ENCOUNTER → 2025-06-10 09:46 | Outpatient (BNVA) | payer MEDICARE, SELFPAY | PROVIDERS: PCP Registered Nurse; Visit Provider Nurse Practitioner Family | DX: D18.01 Hemangioma of skin and subcutaneous tissue (principal); L81.4 Other melanin hyperpigmentation; L44.8 Other specified papulosquamous disorders; L57.8 Other skin changes due to chronic exposure to nonionizing radiation; D48.5 Neoplasm of uncertain behavior of skin | CPT/HCPCS: 11102; 99203 ==